=== PATIENT | male | born 1965 | race Caucasian/White ===

== ENCOUNTER 2018-05-03 06:57 | Day surgery (SDC) | payer OTHER ==
[2018-05-03] MEDS ORDERED: Propofol 200 MG/20 ML SDV IV ONE (06:58)
[2018-05-03] MEDS ORDERED: Lactated Ringers 1,000 ML IV SCH (07:30)
--- NOTE | 2018-05-03 09:41 | PCM.OPNOTE ---
- General Post-Op/Procedure Note Date of Surgery/Procedure: 05/03/18 Operative Procedure(s): scope with bx Findings: ? cecal polyp Pre Op Diagnosis: colon cancer screening Post-Op Diagnosis: Same Anesthesia Technique: MAC Primary Surgeon: Gabe Rios Anesthesia Provider: Blayne Greco Pathology: cecum Complications: None Condition: Good Free Text/Narrative:: see dictation
--- NOTE | 2018-05-03 13:51 | OR ---
DATE OF OPERATION: 05/03/2018 SURGEON: Gabe Rios MD PROCEDURE PERFORMED: Colonoscopy, cold forceps biopsy. PREOPERATIVE DIAGNOSIS: Colon cancer screening. POSTOPERATIVE DIAGNOSIS: Questionable polyp of the cecum. INDICATIONS FOR PROCEDURE: This is a 52-year-old white male who presents for an initial screening colonoscopy. DESCRIPTION OF PROCEDURE: After an excellent IV sedation was administered, digital rectal exam was performed. No marked abnormality was noted. The flexible colonoscope was inserted and advanced to the cecum without difficulty. Prep was excellent. The following findings were noted. The cecum had small lesion that appeared to be possible early adenoma. Biopsies were taken and sent for permanent. Ascending colon, unremarkable. Transverse colon, unremarkable. Descending colon, unremarkable. Sigmoid and rectum, unremarkable. Colon was deflated. The scope was removed. The patient tolerated the procedure well and was taken to recovery room in a good condition. Results by letter. /[id number] /MODL
== END 2018-05-03 10:02 | disposition home or self-care (01) ==
LOC: FB.SDS 06:57
PROVIDERS: ATTEND Surgery
DX: Z12.11 Encounter for screening for malignant neoplasm of colon (principal); D12.0 Benign neoplasm of cecum; E78.5 Hyperlipidemia, unspecified; Z86.010 Personal history of colon polyps; Z87.891 Personal history of nicotine dependence; Z79.82 Long term (current) use of aspirin; Z79.899 Other long term (current) drug therapy; Z80.0 Family history of malignant neoplasm of digestive organs; Z88.8 Allergy status to other drugs, medicaments and biological substances
CPT/HCPCS: 88305; J2704; J7120